=== PATIENT | female | born 1940 | race Caucasian/White ===

== ENCOUNTER 2019-03-26 10:29 | Day surgery (SDC) | payer MEDICARE, BC ==
[2019-03-25 13:55] LABS: BASOPHILS # (AUTO) 0.1 X10'3 (0-0.2); BASOPHILS % (AUTO) 0.8 % (0-1); EOSINOPHILS # (AUTO) 0.1 X10'3 (0-0.9); EOSINOPHILS % (AUTO) 1.6 % (0-6); HEMATOCRIT 40.8 % (35.0-45.0); HEMOGLOBIN 13.3 g/dl (12.0-16.0); LYMPHOCYTES # (AUTO) 1.7 X10'3 (1.1-4.8); LYMPHOCYTES % (AUTO) 23.8 % (21-51); MEAN CORPUSCULAR HEMOGLOBIN 29.9 PG (27.0-31.0); MEAN CORPUSCULAR HGB CONC 32.6 g/dL (33.0-36.5); MEAN CORPUSCULAR VOLUME 91.7 FL (78-98); MEAN PLATELET VOLUME 8.8 FL (7.4-10.4); MONOCYTES # (AUTO) 0.5 X10'3 (0-0.9); MONOCYTES % (AUTO) 6.9 % (2-12); NEUTROPHILS # (AUTO) 4.9 X10'3 (1.8-7.7); NEUTROPHILS % (AUTO) 66.9 % (42-75); PLATELET COUNT 229 X10'3 (140-440); RED BLOOD COUNT 4.45 X10'6 (4.20-5.60); RED CELL DISTRIBUTION WIDTH 13.3 % (11.5-14.5); WHITE BLOOD COUNT 7.3 X10'3 (4.5-11.0)
[2019-03-25 14:05] LABS: ALBUMIN 3.2 G/DL (3.4-5.0); ANION GAP 5 (8-16); BLOOD UREA NITROGEN 11 MG/DL (7-18); BUN/CREATININE RATIO 10.5 (6.6-38.0); CALCIUM 9.5 MG/DL (8.5-10.1); CHLORIDE 106 MMOL/L (99-107); CREATININE 1.05 MG/DL (0.40-0.90); GLUCOSE 91 MG/DL (70-104); SODIUM 140 MMOL/L (135-145); TOTAL CARBON DIOXIDE 28.7 MMOL/L (24-32); eGFR 50 ML/MIN
[2019-03-25 14:09] LABS: PARTIAL THROMBOPLASTIN TIME 28 SECONDS (22-32)
[2019-03-26] VITALS (12 sets, daily range): BP systolic 136–169; BP diastolic 63–91
[~2019-03-26] VITALS: Ht 162.6 cm; Wt 79.6 kg
[~2019-03-26 10:29] MED LIST: ASPI-842 PO; EST1T PO; FLUO10TA PO; METAMUCIL425 GM PO; VALS1TAB77 PO
[2019-03-26] MEDS ORDERED: methylPREDNISolone sod succ 125mg/2ml vial IV ONE (10:50)
[2019-03-26] MEDS ORDERED: nitroGLYCERIN 0.4mg SUBLingual tab SL PRN (10:50)
[2019-03-26] MEDS ORDERED: LORazepam 0.5 MG tablet PO PRN (10:50)
[2019-03-26] MEDS ORDERED: normal saline 1,000 ML IV SCH (10:50)
[2019-03-26] MEDS ORDERED: diphenhydrAMINE 25mg capsule PO PRN (10:50)
[2019-03-26] MEDS ORDERED: LOSA25TA96 PO (11:17)
[2019-03-26] MEDS ORDERED: MONT10TA24 PO (11:17)
[2019-03-26] MEDS ORDERED: GABA-530 PO (11:17)
[2019-03-26] MEDS ORDERED: BUPR100T5 PO (11:17)
[2019-03-26] MEDS ORDERED: CLON0.2T PO (11:17)
[2019-03-26] MEDS ORDERED: iohexol 350MG/ML 100ml bottle IV ONE (12:07)
[2019-03-26] MEDS ORDERED: fentaNYL/PF 50MCG/1 ML 2ML syringe ONE (12:07)
[2019-03-26] MEDS ORDERED: LIDOcaine 1% (10mg/ml)w/preservative injection 20ml MDV ONE (12:07)
[2019-03-26] MEDS ORDERED: midazolam 2 mg/2 ml injection ONE (12:07)
[2019-03-26] MEDS ORDERED: iohexol 350 MG/ML 50ML vial IV ONE (12:07)
[2019-03-26] MEDS ORDERED: hydrALAZINE 20mg/ml inj. IV ONE (12:54)
[2019-03-26] MEDS ORDERED: nitroGLYCERIN-Tridil 50MG/D5W 250 ML IV ONE (12:54)
[2019-03-26] MEDS ORDERED: HYDROcodone/acetaminophen 10/325mg tab PO PRN (13:45)
[2019-03-26] MEDS ORDERED: proCHLORperazine 10 MG/2 ml inj IV PRN (13:45)
[2019-03-26] MEDS ORDERED: HYDROcodone/acetaminophen 5mg/325mg tablet PO PRN (13:45)
[2019-03-26] MEDS ORDERED: OXAZEpam 15mg capsule PO PRN (13:45)
[2019-03-26] MEDS ORDERED: ondansetron/PF 4mg/2ml inj IV PRN (13:45)
== END 2019-03-26 19:10 | disposition home or self-care (01) ==
LOC: SSTAY O 10:29
PROVIDERS: ATTEND Internal Medicine Cardiovascular Disease
DX: I25.10 Atherosclerotic heart disease of native coronary artery without angina pectoris (principal); I10 Essential (primary) hypertension; E78.5 Hyperlipidemia, unspecified; Z87.891 Personal history of nicotine dependence; J44.9 Chronic obstructive pulmonary disease, unspecified; Z88.2 Allergy status to sulfonamides; Z79.899 Other long term (current) drug therapy; Z91.048 Other nonmedicinal substance allergy status; Z98.890 Other specified postprocedural states; G89.4 Chronic pain syndrome
CPT/HCPCS: 36415; 71046; 80048; 85025; 85610; 85730; 93458; 99152; 99153; A6257; C1769; J0360; J1644; J2001; J2250; J2930; J3010; J7030; Q0163; Q9967; A4620; C1760; J3490

== ENCOUNTER 2019-05-14 10:23 | Day surgery (SDC) | payer MEDICARE, BC ==
[2019-05-12 14:21] LABS: BASOPHILS % (AUTO) 0.5 % (0-1); EOSINOPHILS # (AUTO) 0.1 X10'3 (0-0.9); EOSINOPHILS % (AUTO) 1.1 % (0-6); HEMATOCRIT 40.5 % (35.0-45.0); HEMOGLOBIN 13.5 g/dl (12.0-16.0); LYMPHOCYTES # (AUTO) 1.7 X10'3 (1.1-4.8); LYMPHOCYTES % (AUTO) 22.4 % (21-51); MEAN CORPUSCULAR HEMOGLOBIN 30.3 PG (27.0-31.0); MEAN CORPUSCULAR HGB CONC 33.4 g/dL (33.0-36.5); MEAN CORPUSCULAR VOLUME 90.9 FL (78-98); MEAN PLATELET VOLUME 8.7 FL (7.4-10.4); MONOCYTES # (AUTO) 0.5 X10'3 (0-0.9); NEUTROPHILS # (AUTO) 5.2 X10'3 (1.8-7.7); PLATELET COUNT 235 X10'3 (140-440); RED BLOOD COUNT 4.46 X10'6 (4.20-5.60); RED CELL DISTRIBUTION WIDTH 13.5 % (11.5-14.5); WHITE BLOOD COUNT 7.6 X10'3 (4.5-11.0)
[2019-05-12 14:36] LABS: ALANINE AMINOTRANSFERASE 18 U/L (12-78); ALBUMIN 3.4 G/DL (3.4-5.0); ALBUMIN/GLOBULIN RATIO 0.9 (1.1-1.5); ALKALINE PHOSPHATASE 99 IU/L (46-116); ANION GAP 6 (8-16); ASPARTATE AMINO TRANSFERASE 15 U/L (10-37); BILIRUBIN,TOTAL 0.3 MG/DL (0.1-1.0); BLOOD UREA NITROGEN 8 MG/DL (7-18); BUN/CREATININE RATIO 7.6 (6.6-38.0); CALCIUM 8.8 MG/DL (8.5-10.1); CHLORIDE 107 MMOL/L (99-107); CREATININE 1.05 MG/DL (0.40-0.90); GLUCOSE 67 MG/DL (70-104); POTASSIUM 3.6 MMOL/L (3.5-5.1); SODIUM 142 MMOL/L (135-145); TOTAL CARBON DIOXIDE 28.6 MMOL/L (24-32); TOTAL PROTEIN 7.1 G/DL (6.4-8.2); eGFR 50 ML/MIN
[2019-05-12 15:00] LABS: PARTIAL THROMBOPLASTIN TIME 28 SECONDS (22-32)
[2019-05-14] VITALS (13 sets, daily range): BP systolic 115–146; BP diastolic 51–76
[~2019-05-14] VITALS: Ht 162.6 cm; Wt 79.7 kg
[~2019-05-14 10:23] MED LIST changes: -ASPI-842 PO; +BUPR100T5 PO; +CLON0.2T PO; +GABA-530 PO; +LOSA25TA96 PO; -METAMUCIL425 GM PO; +MONT10TA24 PO; -VALS1TAB77 PO
[2019-05-14] MEDS ORDERED: ACYC400T PO (10:58)
[2019-05-14] MEDS ORDERED: AMLO2.5T2 PO (10:58)
[2019-05-14] MEDS ORDERED: ASPI-611 PO ×2 (10:58→12:49)
[2019-05-14] MEDS ORDERED: PRILOSEC (10:58)
[2019-05-14] MEDS ORDERED: CHOL50004 PO (10:58)
[2019-05-14] MEDS ORDERED: METAMUCIL (10:58)
[2019-05-14] MEDS ORDERED: VALS1TAB77 PO (10:58)
[2019-05-14] MEDS ORDERED: methylPREDNISolone sod succ 125mg/2ml vial IV ONE (11:00)
[2019-05-14] MEDS ORDERED: diphenhydrAMINE 25mg capsule PO PRN (11:00)
[2019-05-14] MEDS ORDERED: nitroGLYCERIN 0.4mg SUBLingual tab SL PRN (11:00)
[2019-05-14] MEDS ORDERED: LORazepam 0.5 MG tablet PO PRN (11:00)
[2019-05-14] MEDS ORDERED: normal saline 1,000 ML IV SCH (11:00)
[2019-05-14] MEDS ORDERED: heparin 1,000unit/ml 10ml vial 10 ML ONE (11:23)
[2019-05-14] MEDS ORDERED: fentaNYL/PF 50MCG/1 ML 2ML syringe ONE (11:23)
[2019-05-14] MEDS ORDERED: LIDOcaine 1% (10mg/ml)w/preservative injection 20ml MDV ONE (11:23)
[2019-05-14] MEDS ORDERED: midazolam 2 mg/2 ml injection ONE ×2 (11:23→12:10)
[2019-05-14] MEDS ORDERED: iohexol 350 MG/1 ML 200ml bottle ONE (11:24)
[2019-05-14] MEDS ORDERED: heparin 25,000 UNIT/250ml bag 250 ML IV ONE (11:28)
[2019-05-14] MEDS ORDERED: tirofiban 5mg in NS 100mL 100 ML IV ONE (11:29)
[2019-05-14] MEDS ORDERED: nitroGLYCERIN-Tridil 50MG/D5W 250 ML IV ONE (12:30)
[2019-05-14] MEDS ORDERED: clopidogrel 300mg tablet ONE (12:49)
[2019-05-14] MEDS ORDERED: CLOP75TA15 PO (12:49)
[2019-05-14] MEDS ORDERED: HYDROcodone/acetaminophen 5mg/325mg tablet PO PRN (13:40)
[2019-05-14] MEDS ORDERED: normal saline 1000ml 1,000 ML IV ONE (13:40)
[2019-05-14] MEDS ORDERED: HYDROcodone/acetaminophen 10/325mg tab PO PRN (13:40)
[2019-05-14] MEDS ORDERED: proCHLORperazine 10 MG/2 ml inj IV PRN (13:40)
[2019-05-14] MEDS ORDERED: ondansetron/PF 4mg/2ml inj IV PRN (13:40)
[2019-05-14] MEDS ORDERED: OXAZEpam 15mg capsule PO PRN (13:40)
== END 2019-05-14 20:10 | disposition home or self-care (01) ==
LOC: SSTAY O 10:23
PROVIDERS: ATTEND Internal Medicine Cardiovascular Disease
DX: I25.10 Atherosclerotic heart disease of native coronary artery without angina pectoris (principal); I10 Essential (primary) hypertension; E78.5 Hyperlipidemia, unspecified; Z88.8 Allergy status to other drugs, medicaments and biological substances; Z98.890 Other specified postprocedural states; Z88.2 Allergy status to sulfonamides; Z91.09 Other allergy status, other than to drugs and biological substances; Z87.891 Personal history of nicotine dependence; Z79.899 Other long term (current) drug therapy; Z79.01 Long term (current) use of anticoagulants
CPT/HCPCS: 36415; 71046; 80053; 85025; 85347; 85610; 85730; 93005; 93926; 99152; 99153; C1769; C1874; C9600; J1644; J2001; J2250; J2405; J2930; J3010; J3246; J7030; Q0163; Q9967; A4620; A6258; C1760; J3490; J7040

== ENCOUNTER 2019-05-23 10:51 | Outpatient (CLI) | payer MEDICARE, BC ==
[~2019-05-23 10:51] MED LIST changes: +ACYC400T PO; +AMLO2.5T2 PO; +ASPI-611 PO; +CHOL50004 PO; +CLOP75TA15 PO; +METAMUCIL; +PRILOSEC; +VALS1TAB77 PO
== END 2019-05-23 23:59 | disposition home or self-care (01) ==
LOC: VAS 10:51
PROVIDERS: ATTEND Internal Medicine Cardiovascular Disease
DX: R58 Hemorrhage, not elsewhere classified (principal)
CPT/HCPCS: 93926

== ENCOUNTER 2020-06-24 07:45 | Day surgery (SDC) | payer MEDICARE, BC ==
[2020-06-24] VITALS (7 sets, daily range): BP systolic 133–197; BP diastolic 63–98
[~2020-06-24] VITALS: Ht 162.6 cm; Wt 72.7 kg
[~2020-06-24 07:45] MED LIST changes: -MONT10TA24 PO; +MONT10TA26 PO
[2020-06-24] MEDS ORDERED: diphenhydrAMINE 50 mg/ml inj ONE (08:23)
[2020-06-24] MEDS ORDERED: fentaNYL/PF 50MCG/1 ML 2ML syringe ONE (08:23)
[2020-06-24] MEDS ORDERED: MIDAZolam 5mg/5ml vial ONE (08:23)
[2020-06-24] MEDS ORDERED: levoFLOXACIN-Levaquin 500mg/D5 100 ML IV ONE (08:24)
[2020-06-24] MEDS ORDERED: glucagon, human recombinant 1mg kit ONE (08:24)
[2020-06-24] MEDS ORDERED: LIDOcaine Viscous 15ml cup ONE (08:24)
[2020-06-24] MEDS ORDERED: iohexol 300 MG/1 ML 50ml polymer ONE (08:24)
[2020-06-24] MEDS ORDERED: epiNEPHrine 0.1mg/ml 10ml syringe ONE (09:27)
== END 2020-06-24 11:06 | disposition home or self-care (01) ==
LOC: GI LAB 07:45
PROVIDERS: ATTEND Internal Medicine Gastroenterology
DX: K83.1 Obstruction of bile duct (principal); K86.89 Other specified diseases of pancreas; R17 Unspecified jaundice
CPT/HCPCS: 43261; 43262; 43274; 44366; C1769; J0171; J1200; J1610; J1956; J2250; J3010; J7040; Q9967; 88108; 88305; 88342; 88360; 99152; 99153; A4620